=== PATIENT | male | born 1955 | race Caucasian/White ===

== ENCOUNTER 2018-06-15 14:19 | Inpatient (IN) | payer OTHER ==
[2018-06-15] MEDS ORDERED: Meropenem 1 GM/100 ML BAG ONE (14:47)
[2018-06-15] MEDS ORDERED: ACETAMINOPHEN 500 MG TAB ONE (14:47)
[2018-06-15] MEDS ORDERED: NA CHLORIDE 0.9% 3,000 ML ONE (14:47)
[2018-06-15] MEDS ORDERED: PROMETHAZINE 25 MG/ML VIAL ONE (14:47)
--- NOTE | 2018-06-15 15:37 | RAD REPORT ---
EXAM DESCRIPTION: RAD - Chest Single View - 06/15/2018 3:21 pm CLINICAL HISTORY: FEVER Chest pain. COMPARISON: No comparisons FINDINGS: Portable technique limits examination quality. Mild bilateral pulmonary opacities are present likely representing interstitial pneumonia. The heart is normal in size. No displaced fractures. IMPRESSION: Mild bilateral interstitial pneumonia.
[2018-06-15] MEDS ORDERED: IBUPROFEN 400 MG TAB ONE (16:04)
[2018-06-15] MEDS ORDERED: IBUPROFEN 200 MG TAB PO ONE (16:04)
[2018-06-15 16:08] LABS: Arterial Blood Carboxyhemoglob 1.4 % (0-1.5); Blood Gas Oxyhemoglobin 91.9 % (94-97); Blood O2 Saturation 94.3 % (92-98.5)
[2018-06-15 16:09] LABS: Protime INR 1.15
[2018-06-15 16:13] LABS: Absolute Lymphocytes (CBC) 0.5 K/uL (0.7-4.9); Absolute Neutrophil 2.2 K/uL (1.8-8.0); Basophils % 0.3 % (0-1.3); Eosinophils % 0.1 % (0-4.4); Hematocrit 44.2 % (39.6-49.0); Lymphocytes % 18.6 % (15.3-44.8); MCH 29.9 pg (27.0-35.0); MCV 86.5 fL (80-100); MPV 9.7 fL (7.6-11.3); Monocytes % 1.1 % (3.3-12.3); RBC Red Blood Cell Count 5.11 M/uL (4.33-5.43)
--- NOTE | 2018-06-15 16:20 | EDPHYS ---
Physician Documentation [facility] Name: Gil Champagne Age: 63 yrs Sex: Male : 1955 Arrival Date: 06/15/2018 Time: 14:19 Bed 20 Private MD: Camilo Belcher S ED Physician Collin Meehan HPI: 06/15 16:14 This 63 yrs old Male presents to ER via Wheelchair with complaints of Fever, snw Vomiting. 16:14 The patient reports fever, that was measured at 104.4 degrees Fahrenheit. Onset: The snw symptoms/episode began/occurred suddenly. Modifying factors: urinary frequency, chills. Associated signs and symptoms: Pertinent positives: chills, myalgias, vomiting. Severity of symptoms: At their worst the symptoms were moderate severe in the emergency department the symptoms are unchanged. The patient has not experienced similar symptoms in the past. The patient has been recently seen by a physician: with similar presenting complaints, [facility] - dx UTI, sent to ED. Historical: - Allergies: 14:27 PENICILLINS; aa5 - Home Meds: 14:27 Metformin Oral [Active]; aa5 - PMHx: 14:27 Diabetes - NIDDM; aa5 - PSHx: 14:27 left arm; left knee; right ankle; aa5 - Immunization history:: Pneumococcal vaccine status is unknown, Flu vaccine is not up to date. - Social history:: Smoking status: Patient/guardian denies using tobacco. - Ebola Screening: : No symptoms or risks identified at this time. ROS: 16:14 Constitutional: Positive for fever, chills, and negative for weight loss, Eyes: snw Negative for injury, pain, redness, and discharge, ENT: Negative for injury, pain, and discharge, Neck: Negative for injury, pain, and swelling. 16:14 Cardiovascular: Negative for chest pain, palpitations, and edema, Respiratory: Negative for shortness of breath, cough, wheezing, and pleuritic chest pain, Abdomen/GI: Negative for abdominal pain, nausea, vomiting, diarrhea, and constipation, Back: Negative for injury and pain. 16:14 MS/Extremity: Negative for injury and deformity, Skin: Negative for injury, rash, and discoloration, Neuro: Negative for headache, weakness, numbness, tingling, and seizure. 16:14 : Positive for urinary symptoms, urinary frequency. Exam: 16:14 Head/Face: Normocephalic, atraumatic. Eyes: Pupils equal round and reactive to light, snw extra-ocular motions intact. Lids and lashes normal. Conjunctiva and sclera are non-icteric and not injected. Cornea within normal limits. Periorbital areas with no swelling, redness, or edema. 16:14 Neck: Trachea midline, no thyromegaly or masses palpated, and no cervical lymphadenopathy. Supple, full range of motion without nuchal rigidity, or vertebral point tenderness. No Meningismus. Chest/axilla: Normal chest wall appearance and motion. Nontender with no deformity. No lesions are appreciated. 16:14 Respiratory: Lungs have equal breath sounds bilaterally, clear to auscultation and percussion. No rales, rhonchi or wheezes noted. No increased work of breathing, no retractions or nasal flaring. Abdomen/GI: Soft, non-tender, with normal bowel sounds. No distension or tympany. No guarding or rebound. No evidence of tenderness throughout. Back: No spinal tenderness. No costovertebral tenderness. Full range of motion. MS/ Extremity: Pulses equal, no cyanosis. Neurovascular intact. Full, normal range of motion. 16:14 Constitutional: The patient appears awake, febrile, uncomfortable, chills/rigors 16:14 ENT: TM's: no acute changes, Nose: is normal, Mouth: Lips: cyanotic, Oral mucosa: dry, Posterior pharynx: is normal. 16:14 Cardiovascular: Rate: tachycardic, Rhythm: regular. 16:14 Skin: Appearance: Color: brenna, Temperature: cool. 16:14 Neuro: Orientation: mild confusion, inattention, Mentation: slow to respond, confused, seizure activity, is not displayed by the patient. Vital Signs: 14:28 BP 94 / 59; Pulse 100; Resp 22 S; Temp 103.3(O); Pulse Ox 99% on R/A; Weight 94.35 kg aa5 (R); Height 5 ft. 7 in. (170.18 cm) (R); Pain 0/10; 14:45 BP 109 / 64; Pulse 108; Resp 24; Pulse Ox 94% on R/A; jl7 15:00 BP 112 / 67; Pulse 111; Resp 32 S; Pulse Ox 94% on R/A; jl7 15:15 BP 95 / 63; Pulse 115; Resp 30; Pulse Ox 93% ; jl7 15:30 BP 113 / 60; Pulse 124; Resp 24 S; Pulse Ox 94% on R/A; jl7 15:45 BP 101 / 55; Pulse 123; Resp 29 S; Temp 104.6(C); Pulse Ox 94% on R/A; jl7 16:00 BP 98 / 52; Pulse 129; Resp 27; Temp 104.9(C); Pulse Ox 94% ; jl7 16:23 BP 103 / 53; Pulse 119; Resp 27 S; Temp 103.8(C); Pulse Ox 98% on R/A; jl7 17:00 BP 107 / 59; Pulse 116; Resp 32 S; Temp 103.6(C); Pulse Ox 97% on R/A; jl7 17:15 BP 101 / 56; Pulse 119; Resp 35 S; Temp 103.6(C); Pulse Ox 95% on R/A; jl7 17:45 BP 93 / 54; Pulse 115; Resp 29 S; Temp 102.8(C); Pulse Ox 98% on 2 lpm NC; jl7 14:28 Body Mass Index 32.58 (94.35 kg, 170.18 cm) aa5 MDM: 14:42 Patient medically screened. snw 16:20 Data reviewed: vital signs, nurses notes, lab test result(s), EKG, radiologic studies. snw Data interpreted: certified nurses' aide: rate is 100 beats/min, rhythm is normal sinus rhythm, Pulse oximetry: on room air is 99 %. Interpretation: normal. Counseling: I had a detailed discussion with the patient and/or guardian regarding: the historical points, exam findings, and any diagnostic results supporting the discharge/admit diagnosis, lab results, radiology results, the need for further work-up and treatment in the hospital. Physician consultation: Magali Jung MD was called at 16:10, was contacted at 16:10, in the emergency department to see patient at 16:25. 06/15 14:33 Order name: T\T\S sn 06/15 14:33 Order name: Amylase, Serum; Complete Time: 16:55 snw 06/15 14:33 Order name: Basic Metabolic Panel; Complete Time: 16:55 snw 06/15 14:33 Order name: Blood Culture Adult (2) 06/15 14:33 Order name: C-Reactive Protein; Complete Time: 16:55 snw 06/15 14:33 Order name: CBC with Diff; Complete Time: 16:50 snw 06/15 14:33 Order name: Ckmb; Complete Time: 16:55 snw 06/15 14:33 Order name: CPK; Complete Time: 16:55 snw 06/15 14:33 Order name: Lactate; Complete Time: 17:06 snw 06/15 14:33 Order name: LFT's; Complete Time: 16:55 snw 06/15 14:33 Order name: Lipase; Complete Time: 16:55 snw 06/15 14:33 Order name: Procalcitonin; Complete Time: 16:58 snw 06/15 14:33 Order name: Protime (+inr); Complete Time: 16:24 snw 06/15 14:33 Order name: Ptt, Activated; Complete Time: 16:24 w 06/15 14:33 Order name: Sed Rate; Complete Time: 16:50 w 06/15 14:33 Order name: Troponin (emerg Dept Use Only); Complete Time: 16:55 w 06/15 14:33 Order name: Chest Single View XRAY; Complete Time: 15:47 w 06/15 14:34 Order name: Type and Screen; Complete Time: 17:30 EDMS 06/15 14:34 Order name: Urine Microscopic Only; Complete Time: 16:57 w 06/15 14:34 Order name: Urine Culture 06/15 15:57 Order name: ABG; Complete Time: 16:24 snw 06/15 16:29 Order name: Urine Dipstick--Ancillary (enter results) em1 06/15 16:38 Order name: CBC Smear Scan; Complete Time: 16:50 EDMS 06/15 16:57 Order name: Urine Dipstick-Ancillary; Complete Time: 16:57 EDMS 06/15 14:33 Order name: Accucheck; Complete Time: 16:21 snw 06/15 14:33 Order name: Cardiac monitoring; Complete Time: 16:22 snw 06/15 14:33 Order name: EKG - Nurse/Tech; Complete Time: 16:22 06/15 14:33 Order name: IV Saline Lock - Large Bore; Complete Time: 16:22 06/15 14:33 Order name: Labs collected and sent; Complete Time: 16:22 06/15 14:33 Order name: O2 Per Protocol; Complete Time: 16:22 06/15 14:33 Order name: O2 Sat Monitoring; Complete Time: 16:22 06/15 14:33 Order name: Urine Dipstick-Ancillary (obtain specimen); Complete Time: 16:01 06/15 14:34 Order name: Banerjee: Criticore; Complete Time: 16:20 06/15 17:43 Order name: Oxygen: 4L via n/c; Complete Time: 10:17 snw Administered Medications: 14:45 Drug: Tylenol 1000 mg Route: PO; jl7 15:45 Follow up: Response: Temperature is increased jl7 15:15 Drug: NS 0.9% (30 ml/kg) 30 ml/kg Route: IV; Rate: bolus; Site: right hand; jl7 17:30 Follow up: IV Status: Completed infusion jl7 15:20 Drug: Phenergan 12.5 mg Route: IVP; Site: right antecubital; jl7 16:00 Follow up: Response: No adverse reaction; Nausea is decreased jl7 15:40 Drug: Meropenem 1 grams Route: IV; Rate: calculated rate; Site: right antecubital; jl7 16:40 Follow up: IV Status: Completed infusion jl7 16:00 Drug: Motrin 600 mg Route: PO; jl7 17:25 Follow up: Response: Temperature is decreased jl7 16:30 Drug: NS 0.9% 1000 ml Route: IV; Rate: 1 bolus; Site: left antecubital; jl7 17:30 Follow up: IV Status: Completed infusion jl7 16:50 Drug: vancoMYCIN 1 grams Route: IVPB; Infused Over: 2 hrs; Site: left antecubital; jl7 17:45 Follow up: IV Status: Infusion continued upon admission jl7 Disposition: 06/16 07:03 Co-signature as Attending Physician, Collin Meehan MD I agree with the assessment and marilynn plan of care. Disposition: 06/15/18 16:20 Hospitalization ordered by Magali Jung for Inpatient Admission. Preliminary diagnosis is Sepsis, unspecified organism. - Bed requested for Intensive Care Unit. - Status is Inpatient Admission. aj - Condition is Serious. - Problem is new. - Symptoms are unchanged. UTI on Admission? Yes Critical care time excluding procedures: 06/15 16:21 Critical care time: Bedside Care: 10 minutes, Consultation: 20 minutes, Family snw Intervention: 5 minutes. Total time: 35 minutes Signatures: Dispatcher [employer] EDTomasa Light Amanda, RN RN Collin Lawson MD MD cha Therrien, Shelly, COLLECTIONS REP-C COLLECTIONS REP-Csnw Chanel Singh, RN RN aa5 Javon Tapia RN RN jl7 Corrections: (The following items were deleted from the chart) 17:02 16:20 Hospitalization Ordered by Magali Jung MD for Inpatient Admission. Preliminary bd diagnosis is Sepsis, unspecified organism. Bed requested for Intensive Care Unit. Status is Inpatient Admission. Condition is Serious. Problem is new. Symptoms are unchanged. UTI on Admission? Yes. snw 18:08 17:02 06/15/2018 16:20 Hospitalization Ordered by Magali Jung MD for Inpatient aj Admission. Preliminary diagnosis is Sepsis, unspecified organism. Bed requested for Intensive Care Unit. Status is Inpatient Admission. Condition is Serious. Problem is new. Symptoms are unchanged. UTI on Admission? Yes. bd
--- NOTE | 2018-06-15 16:20 | ER ---
Nurse's Notes [facility] Name: Gil Champagne Age: 63 yrs Sex: Male : 1955 Arrival Date: 06/15/2018 Time: 14:19 Bed 20 Private MD: Camilo Belcher S Diagnosis: Sepsis, unspecified organism Presentation: 06/15 14:25 Presenting complaint: Patient states: fever and chills today. 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 Pt reports being seen today at Doctor's office and diagnosed with UTI. Transition of care: patient was not received from another setting of care. Onset of symptoms was June 15, 2018. Risk Assessment: Do you want to hurt yourself or someone else? Patient reports no desire to harm self or others. Initial Sepsis Screen: Does the patient meet any 2 criteria? RR > 20 per min. Temp <36.0*C (96.8*F)) or > 38.3*C (100.4*F). HR > 90 bpm. Yes. Care prior to arrival: None. 14:25 Method Of Arrival: Wheelchair aa5 14:25 Acuity: SHERRI 2 aa5 14:30 Initial Sepsis Screen: Does the patient meet any 2 criteria? RR > 20 per min. Temp jl7 <36.0*C (96.8*F)) or > 38.3*C (100.4*F). HR > 90 bpm. Yes Does the patient have a suspected source of infection? Yes: Dysuria/Frequency/Urgency/UTI. Historical: - Allergies: 14:27 PENICILLINS; aa5 - Home Meds: 14:27 Metformin Oral [Active]; aa5 - PMHx: 14:27 Diabetes - NIDDM; aa5 - PSHx: 14:27 left arm; left knee; right ankle; aa5 - Immunization history:: Pneumococcal vaccine status is unknown, Flu vaccine is not up to date. - Social history:: Smoking status: Patient/guardian denies using tobacco. - Ebola Screening: : No symptoms or risks identified at this time. Screenin:00 Abuse screen: Denies threats or abuse. Denies injuries from another. Nutritional jl7 screening: No deficits noted. Tuberculosis screening: No symptoms or risk factors identified. Fall Risk Total Beckett Fall Scale indicates High Risk Score (45 or more points). Fall prevention measures have been instituted. Side Rails Up X 2 Placed Close to Nursing Station Frequent Obs/Assessments Occuring Family Present and informed to notify staff if the need to leave the bedside As available patient and family educated on Fall Prevention Program and Strategies. Assessment: 14:30 General: Appears uncomfortable, Behavior is calm, cooperative, appropriate for age. jl7 Pain: Complains of pain in all over Quality of pain is described as aching. Neuro: Level of Consciousness is awake, alert, obeys commands, Oriented to person, place, time, situation. Cardiovascular: Patient's skin is warm and dry. Respiratory: Airway is patent Respiratory effort is even, unlabored, Respiratory pattern is regular, symmetrical. GI: Abdomen is round non-distended, Bowel sounds present X 4 quads. Reports nausea. : Urine is cloudy, Reports pain lower quadrant(s). EENT: No signs and/or symptoms were reported regarding the EENT system. Derm: Skin is pink, warm \T\ dry. Musculoskeletal: No signs and/or symptoms reported regarding the musculoskeletal system. 15:30 Reassessment: No changes from previously documented assessment. Patient and/or family jl7 updated on plan of care and expected duration. Pain level reassessed. Patient is alert, oriented x 3, equal unlabored respirations, skin warm/dry/pink. 16:30 Reassessment: Patient and/or family updated on plan of care and expected duration. Pain jl7 level reassessed. Patient is alert, oriented x 3, equal unlabored respirations, skin warm/dry/pink. Vital Signs: 14:28 BP 94 / 59; Pulse 100; Resp 22 S; Temp 103.3(O); Pulse Ox 99% on R/A; Weight 94.35 kg aa5 (R); Height 5 ft. 7 in. (170.18 cm) (R); Pain 0/10; 14:45 BP 109 / 64; Pulse 108; Resp 24; Pulse Ox 94% on R/A; jl7 15:00 BP 112 / 67; Pulse 111; Resp 32 S; Pulse Ox 94% on R/A; jl7 15:15 BP 95 / 63; Pulse 115; Resp 30; Pulse Ox 93% ; jl7 15:30 BP 113 / 60; Pulse 124; Resp 24 S; Pulse Ox 94% on R/A; jl7 15:45 BP 101 / 55; Pulse 123; Resp 29 S; Temp 104.6(C); Pulse Ox 94% on R/A; jl7 16:00 BP 98 / 52; Pulse 129; Resp 27; Temp 104.9(C); Pulse Ox 94% ; jl7 16:23 BP 103 / 53; Pulse 119; Resp 27 S; Temp 103.8(C); Pulse Ox 98% on R/A; jl7 17:00 BP 107 / 59; Pulse 116; Resp 32 S; Temp 103.6(C); Pulse Ox 97% on R/A; jl7 17:15 BP 101 / 56; Pulse 119; Resp 35 S; Temp 103.6(C); Pulse Ox 95% on R/A; jl7 17:45 BP 93 / 54; Pulse 115; Resp 29 S; Temp 102.8(C); Pulse Ox 98% on 2 lpm NC; jl7 14:28 Body Mass Index 32.58 (94.35 kg, 170.18 cm) aa5 ED Course: 14:19 Patient arrived in ED. rg4 14:20 Camilo Belcher MD is Private Physician. rg4 14:25 Arm band placed on. aa5 14:26 Triage completed. aa5 14:29 Javon Tapia, MARQUEZ is Primary Nurse. jl7 14:41 Dariana Chilel FNP-C [facility]. snw 14:42 Collin Meehan MD is Attending Physician. snw 15:00 Patient has correct armband on for positive identification. Placed in gown. Bed in low jl7 position. Call light in reach. Side rails up X2. security monitor on. Pulse ox on. NIBP on. 15:14 Inserted saline lock: 20 gauge in right antecubital area, using aseptic technique. jl7 Blood collected. 15:14 Initial lab(s) drawn, by va, sent to lab. First set of blood cultures drawn by me. jl7 15:21 X-ray completed. Portable x-ray completed in exam room. Patient tolerated procedure sw well. 15:21 Chest Single View XRAY In Process Unspecified. EDMS 15:35 Second set of blood cultures drawn by me, Urine collected: clean catch specimen, cloudy.jl7 15:45 Banerjee cath inserted, using sterile technique, 16 Fr., by va, balloon inflated, to jl7 gravity drainage, returned cloudy urine. Patient tolerated well. 16:15 Inserted saline lock: 18 gauge 22 gauge in right in left antecubital area, using jl7 aseptic technique. hand, using aseptic technique. 16:19 Magali Jung MD is Hospitalizing Provider. snw 17:27 T\T\S Sent. jl7 17:48 No provider procedures requiring assistance completed. Patient admitted, IV remains in jl7 place. intact, No redness/swelling at site. Administered Medications: 14:45 Drug: Tylenol 1000 mg Route: PO; jl7 15:45 Follow up: Response: Temperature is increased jl7 15:15 Drug: NS 0.9% (30 ml/kg) 30 ml/kg Route: IV; Rate: bolus; Site: right hand; jl7 17:30 Follow up: IV Status: Completed infusion jl7 15:20 Drug: Phenergan 12.5 mg Route: IVP; Site: right antecubital; jl7 16:00 Follow up: Response: No adverse reaction; Nausea is decreased jl7 15:40 Drug: Meropenem 1 grams Route: IV; Rate: calculated rate; Site: right antecubital; jl7 16:40 Follow up: IV Status: Completed infusion jl7 16:00 Drug: Motrin 600 mg Route: PO; jl7 17:25 Follow up: Response: Temperature is decreased jl7 16:30 Drug: NS 0.9% 1000 ml Route: IV; Rate: 1 bolus; Site: left antecubital; jl7 17:30 Follow up: IV Status: Completed infusion jl7 16:50 Drug: vancoMYCIN 1 grams Route: IVPB; Infused Over: 2 hrs; Site: left antecubital; jl7 17:45 Follow up: IV Status: Infusion continued upon admission jl7 Outcome: 16:20 Decision to Hospitalize by Provider. snw 17:48 Admitted to ICU accompanied by nurse, accompanied by tech, family with patient, via jl7 stretcher, room 6, on monitor, with chart, Report called to MARQUEZ carbone 17:52 Condition: stable jl 17:52 Discharge instructions given to patient, family, Instructed on the need for admit, jl7 Demonstrated understanding of instructions. 18:08 Patient left the ED. aj Signatures: Dispatcher [employer] EDChelsea Pool RN Dariana Lopez, JUNIOR PROGRAMMER-C JUNIOR PROGRAMMER-Csnw Chanel Singh RN RN sabas5 Nishi Villarreal Rubi 4 Javon Tapia RN RN jl7 Corrections: (The following items were deleted from the chart) 14:28 14:25 Acuity: SHERRI 3 aa5 aa5 14:35 14:25 Initial Sepsis Screen: Does the patient meet any 2 criteria? No. Patient's aa5 initial sepsis screen is negative. Does the patient have a suspected source of infection? No. Patient's initial sepsis screen is negative. aa5 17:26 17:25 Response: Temperature is unchanged koffi rain
--- NOTE | 2018-06-15 16:31 | P.HP ---
Certification for Inpatient Patient admitted to: Inpatient With expected LOS: >2 Midnights Patient will require the following post-hospital care: None Practitioner: I am a practitioner with admitting privileges, knowledge of patient current condition, hospital course, and medical plan of care. Services: Services provided to patient in accordance with Admission requirements found in Title 42 Section 412.3 of the Code of Federal Regulations Patient History Date of Service: 06/15/18 Primary Care Provider: Dr Belcher Reason for admission: Fever and Chills History of Present Illness: This is a 63-year-old male with significant past medical history of diabetes who presented to the ED complaining of having some fever chills and rigors that has been going on for past couple of days. Patient stated that about a week ago he started feeling weak and fatigued and had started having some nausea at that time. His nausea has got Rodger 2 point where he started having some vomiting is well. Patient presented to the ER for further workup. Patient stated that his fever has been as high as 104.4 lb. T is not taken any medications for it I. Patient has increased frequency and burning during urination as well. Patient went to a urgent care where he was told that he has urinary tract infection and this needed to come to the ER here. In the ER patient was found to be hypertensive and tachycardic along with signs of sepsis secondary to UTI and thus was referred over for admission for further workup. Home medications list reviewed: Yes - Past Medical/Surgical History Has patient received pneumonia vaccine in the past: No Diabetic: Yes -: Diabetes Past Surgical History: Reviewed- Non-Contributory - Family History Family History: Reviewed- Non-Contributory - Social History Smoking Status: Never smoker Counseled patient to stop smoking for: less than 10 minutes Smoking therapy provided: No Patient receptive to therapy: No Alcohol use: No CD- Drugs: No Caffeine use: No Place of Residence: Home Review of Systems 10-point ROS is otherwise unremarkable Physical Examination - Physical Exam General: Alert, In no apparent distress HEENT: Atraumatic, PERRLA, Mucous membr. moist/pink, EOMI, Sclerae nonicteric Neck: Supple, 2+ carotid pulse no bruit, No LAD, Without JVD or thyroid abnormality Respiratory: Clear to auscultation bilaterally, Normal air movement Cardiovascular: Regular rate/rhythm, Normal S1 S2 Gastrointestinal: Normal bowel sounds, No tenderness Musculoskeletal: No tenderness Integumentary: No rashes Neurological: Normal gait, Normal speech, Normal strength at 5/5 x4 extr, Normal tone, Normal affect Lymphatics: No axilla or inguinal lymphadenopathy - Studies Laboratory Data (last 24 hrs) 06/15/18 15:14: PT 13.6 H, INR 1.15, APTT 21.5 L Assessment and Plan - Problems (Diagnosis) (1) Sepsis Current Visit: Yes Status: Acute Plan: Severe Sepsis with Tachycardia, Hypotension and elevated LA -Most Likely 2.2 to UTI PNA -On Vanc and meropenum -Blood and urine culture pending -Will f.u with Labs (2) UTI (urinary tract infection) Current Visit: Yes Status: Acute Plan: UA concerning for UTI -Urine Culture pending for now -IV Meropenum and Vanc Qualifiers: Urinary tract infection type: acute cystitis (3) PNA (pneumonia) Current Visit: Yes Status: Acute Plan: Xray with BL PNA. -On IV vanc and Meropenum -Sputum culture pending -Xray in AM - Plan Patient will be admitted to the ICU for severe sepsis secondary to UTI versus pneumonia. Patient is currently on IV fluids and IV antibiotics. Will continue to monitor closely. Will follow up blood culture and urine culture. Will follow up with lab work which is pending at this time. Discharge Plan: Home Plan to discharge in: 48 Hours - Advance Directives Does patient have a Living Will: No Does patient have a Durable POA for Healthcare: No - Code Status/Comfort Care Code Status Assessed: Yes Critical Care: No
[2018-06-15 16:37] LABS: Blood Morphology Comment NOT SEEN (NOT SEEN); Platelet Estimate ADEQ; Urine White Blood Cell Casts OK
[2018-06-15] MEDS ORDERED: VANCOMYCIN 1 GM/250 ML BAG ONE (16:39)
[2018-06-15] MEDS ORDERED: NA CHLORIDE 0.9% 1,000 ML ONE (16:40)
[2018-06-15 16:53] LABS: ALT/SGPT 31 U/L (12-78); AST/SGOT 24 U/L (15-37); Albumin 3.4 g/dL (3.4-5.0); Alkaline Phosphatase 86 U/L (45-117); Amylase Level 22 U/L (25-115); BUN Blood Urea Nitrogen 11 mg/dL (7-18); Bicarbonate 28 mmol/L (21-32); Bilirubin Direct 0.2 mg/dL (0-0.2); Bilirubin Total 0.8 mg/dL (0.2-1.0); CKMB Creatine Kinase MB < 1.0 ng/mL (0.3-3.6); Creatine Phosphokinase 67 U/L (39-308); Glucose Level 164 mg/dL (74-106); Lipase 100 U/L (73-393); Potassium 3.6 mmol/L (3.5-5.1); Protein, Total 7.9 g/dL (6.4-8.2); Sodium Level 134 mmol/L (136-145); Troponin (Emerg Dept Use Only) < 0.02 ng/mL (0.0-0.045)
[2018-06-15 16:55] LABS: Urine Bacteria 20-50 /HPF (NONE SEEN)
[2018-06-15 16:56] LABS: Urine Culture Reflex Order NOT NEEDED; Urine Mucus 2+ /HPF (NONE SEEN)
[2018-06-15 16:56] LABS: Urine Blood 2+ (NEG); Urine Glucose NEGATIVE (NEG); Urine Protein 3+ (NEG); Urine pH 5.5 (5.0-7.0)
[2018-06-15] MEDS ORDERED: VANCOMYCIN 1.25 GM in NA CHLORIDE 0.9% 250 ML IVPB SCH (17:52)
[2018-06-15] MEDS ORDERED: ONDANSETRON 4 MG/2 ML VIAL IV PRN (17:52)
[2018-06-15] MEDS: INSULIN -REGULAR HUMAN 50 UNIT/0.5 ML ML SQ SCH ×2 (17:52→21:00)
[2018-06-15] MEDS: NA CHLORIDE 0.9% 1,000 ML IV SCH (18:26)
[2018-06-15] MEDS: ENOXAPARIN 40 MG/0.4 ML SQ SCH (20:36)
[2018-06-15] MEDS ORDERED: NA CHLORIDE 0.9% 1,000 ML IV ONE (20:47)
[2018-06-15] MEDS ORDERED: VANCOMYCIN 1.25 GM in NA CHLORIDE 0.9% 250 ML IVPB ONE (21:00)
[2018-06-15] MEDS ORDERED: VANCOMYCIN 2.25 GM in NA CHLORIDE 0.9% 500 ML IVPB ONE (21:00)
[2018-06-15] MEDS ORDERED: Meropenem 1000 MG/VIAL IV SCH (21:00)
[2018-06-15] MEDS ORDERED: NOREPINEPHRINE 4 MG in D5W 250 ML IV PRN (22:19)
[2018-06-15] MEDS ORDERED: D5W 250 ML IV ONE (22:40)
[2018-06-15] MEDS ORDERED: NOREPINEPHRINE 4 MG/4 ML VIAL ONE (22:40)
[2018-06-16] MEDS: Meropenem 1,000 MG in NA CHLORIDE 0.9% 100 ML IV SCH ×3 (00:38→17:49)
[2018-06-16] MEDS: NA CHLORIDE 0.9% 1,000 ML IV SCH ×4 (01:33→14:54)
[2018-06-16 05:23] LABS: Absolute Lymphocytes (CBC) 0.1 K/uL (0.7-4.9); Absolute Monocytes 0.3 K/uL (0.1-1.3); Absolute Neutrophil 8.9 K/uL (1.8-8.0); Basophils % 0.2 % (0-1.3); Eosinophils % 0.8 % (0-4.4); Hematocrit 37.2 % (39.6-49.0); Lymphocytes % 0.8 % (15.3-44.8); MCH 30.4 pg (27.0-35.0); MCV 85.6 fL (80-100); MPV 9.4 fL (7.6-11.3); Monocytes % 3.4 % (3.3-12.3); RBC Red Blood Cell Count 4.34 M/uL (4.33-5.43)
[2018-06-16 05:47] LABS: Albumin 2.4 g/dL (3.4-5.0); Bilirubin Total 0.8 mg/dL (0.2-1.0); Potassium 3.9 mmol/L (3.5-5.1); Protein, Total 5.8 g/dL (6.4-8.2)
[2018-06-16] MEDS ORDERED: NA CHLORIDE 0.9% 1,000 ML IV ONE (06:13)
[2018-06-16] MEDS: ACETAMINOPHEN 500 MG TAB PO PRN ×3 (06:25→19:58)
[2018-06-16] MEDS: INSULIN -REGULAR HUMAN 50 UNIT/0.5 ML ML SQ SCH ×4 (07:34→21:00)
[2018-06-16 08:02] LABS: Magnesium 1.6 mg/dL (1.8-2.4); Phosphorus 2.1 mg/dL (2.5-4.9)
[2018-06-16] MEDS: ENOXAPARIN 40 MG/0.4 ML SQ SCH (08:13)
--- NOTE | 2018-06-16 08:29 | RAD REPORT ---
EXAM DESCRIPTION: RAD - Chest Single View - 06/15/2018 11:16 pm CLINICAL HISTORY: picc line insertion COMPARISON: Chest Single View dated 06/15/2018 FINDINGS: Portable chest was obtained following placement of a right upper extremity PICC line. The catheter tip projects over the SVC..
[2018-06-16 09:00] LABS: Blood Morphology Comment NOT SEEN (NOT SEEN); Platelet Estimate ADEQ; Urine White Blood Cell Casts OK
[2018-06-16] MEDS ORDERED: MAGNESIUM SULFATE 1 gm IVPB 1 GM/100 ML BAG IV ONE (09:00)
[2018-06-16] MEDS: POTASS/SODIUM PHOSPHATE 1 PKT POWD.PACK PO SCH ×3 (09:14→11:36)
--- NOTE | 2018-06-16 12:09 | P.PN ---
Subjective Date of Service: 06/16/18 Primary Care Provider: Dr Belcher Chief Complaint: Fever and Chills Patient seen and examined at bedside. Chart reviewed. Case discussed with nursing. Overnight patient did require to be on a pressor Levophed. This morning however has been successfully weaned off. No complaints to offer at this morning. Currently the map is over 60 however patient blood pressure does appear to be a lower than normal ranges. Review of Systems 10-point ROS is otherwise unremarkable Physical Examination - Vital Signs Temperature: 101.8 F Blood Pressure: 102/60 Pulse: 98 Respirations: 26 Pulse Ox (%): 98 - Physical Exam General: Alert, In no apparent distress HEENT: Atraumatic, PERRLA, EOMI Neck: Supple, JVD not distended Respiratory: Clear to auscultation bilaterally, Normal air movement Cardiovascular: Regular rate/rhythm, Normal S1 S2 Gastrointestinal: Normal bowel sounds, No tenderness Musculoskeletal: No tenderness Integumentary: No rashes Neurological: Normal speech, Normal tone, Normal affect Lymphatics: No axilla or inguinal lymphadenopathy - Studies Laboratory Data (last 24 hrs) 06/15/18 15:14: PT 13.6 H, INR 1.15, APTT 21.5 L 06/15/18 15:14: WBC 2.7 L, Hgb 15.3, Hct 44.2, Plt Count 170 06/15/18 15:14: Sodium 134 L, Potassium 3.6, BUN 11, Creatinine 1.10, Glucose 164 H, Total Bilirubin 0.8, AST 24, ALT 31, Alkaline Phosphatase 86, Amylase 22 L, Lipase 100 Medications List Reviewed: Yes Assessment And Plan - Current Problems (Diagnosis) (1) Sepsis Onset Date: 06/16/18 Current Visit: Yes Status: Acute Plan: Severe Sepsis Shock with Tachycardia, Hypotension and elevated LA -Most Likely 2.2 to UTI -On Vanc and meropenum -Overnight had Levophed and now off the pressor -Blood and urine culture pending. Uculture gram - rods thus far -Will f.u with Labs (2) UTI (urinary tract infection) Onset Date: 06/16/18 Current Visit: Yes Status: Acute Plan: UA concerning for UTI -Urine Culture gram - rods thus far -IV Meropenum and Vanc Qualifiers: Urinary tract infection type: acute cystitis (3) PNA (pneumonia) Onset Date: 06/16/18 Current Visit: Yes Status: Acute Plan: Xray with BL PNA. -On IV vanc and Meropenum -Sputum culture pending -Repeat Xray in AM with improvement (4) Diabetes Current Visit: Yes Status: Chronic Qualifiers: Diabetes mellitus type: type 2 Diabetes mellitus terminal supervisor insulin use: without terminal supervisor use Discharge Plan: Home Plan to discharge in: 48 Hours - Code Status/Comfort Care Code Status Assessed: Yes Critical Care: No
[2018-06-16] MEDS: VANCOMYCIN 1.75 GM in NA CHLORIDE 0.9% 500 ML IVPB SCH (14:53)
[2018-06-16] MEDS ORDERED: NA CHLORIDE 0.9% 500 ML IV ONE (18:30)
[2018-06-16] MEDS ORDERED: PNEUMOCOCCAL VACCINE 0.5 ML IMVAC ONE (21:00)
[2018-06-17] MEDS: NA CHLORIDE 0.9% 1,000 ML IV SCH ×3 (01:54→17:34)
[2018-06-17] MEDS: Meropenem 1,000 MG in NA CHLORIDE 0.9% 100 ML IV SCH ×2 (01:55→08:17)
[2018-06-17] MEDS: ACETAMINOPHEN 500 MG TAB PO PRN ×2 (03:07→23:59)
[2018-06-17 05:31] LABS: Absolute Lymphocytes (CBC) 0.5 K/uL (0.7-4.9); Absolute Monocytes 0.3 K/uL (0.1-1.3); Absolute Neutrophil 3.4 K/uL (1.8-8.0); Basophils % 0.2 % (0-1.3); Eosinophils % 6.2 % (0-4.4); Lymphocytes % 10.5 % (15.3-44.8); MCH 29.8 pg (27.0-35.0); MCV 86.3 fL (80-100); MPV 9.4 fL (7.6-11.3); Monocytes % 6.8 % (3.3-12.3); RBC Red Blood Cell Count 4.06 M/uL (4.33-5.43)
[2018-06-17 06:05] LABS: ALT/SGPT 34 U/L (12-78); AST/SGOT 35 U/L (15-37); Albumin 2.2 g/dL (3.4-5.0); Alkaline Phosphatase 72 U/L (45-117); BUN Blood Urea Nitrogen 11 mg/dL (7-18); Bicarbonate 25 mmol/L (21-32); Bilirubin Total 0.5 mg/dL (0.2-1.0); Glucose Level 130 mg/dL (74-106); Magnesium 1.9 mg/dL (1.8-2.4); Phosphorus 1.9 mg/dL (2.5-4.9); Potassium 3.3 mmol/L (3.5-5.1); Protein, Total 5.3 g/dL (6.4-8.2); Sodium Level 140 mmol/L (136-145)
[2018-06-17] MEDS: POTASSIUM PHOS IN 0.9 % NACL 15 MMOL/250 ML BAG IV ONE ×2 (06:40→08:51)
[2018-06-17] MEDS ORDERED: KCL 20 MEQ/100 mL IVPB 20 MEQ/100 ML BAG IV ONE (06:48)
[2018-06-17] MEDS ORDERED: KCL 20 MEQ/100 mL IVPB 20 MEQ/100 ML BAG IV SCH (07:00)
[2018-06-17] MEDS: INSULIN -REGULAR HUMAN 50 UNIT/0.5 ML ML SQ SCH ×4 (07:30→21:00)
[2018-06-17] MEDS: ENOXAPARIN 40 MG/0.4 ML SQ SCH (08:17)
[2018-06-17] MEDS: VANCOMYCIN 1.75 GM in NA CHLORIDE 0.9% 500 ML IVPB SCH (09:18)
[2018-06-17] MEDS ORDERED: Levofloxacin500mg IV 500 MG/100 ML BAG IV SCH (14:00)
--- NOTE | 2018-06-17 16:57 | P.PN ---
Subjective Date of Service: 06/17/18 Primary Care Provider: Dr Belcher Chief Complaint: Fever and Chills Patient seen and examined at bedside. Chart reviewed. Case discussed with nursing. Overnight patient did well overall. Currently doing well. Urine culture positive for E. coli. Sensitive to Levaquin. Review of Systems 10-point ROS is otherwise unremarkable Physical Examination - Vital Signs Temperature: 99.4 F Blood Pressure: 122/80 Pulse: 77 Respirations: 17 Pulse Ox (%): 99 - Physical Exam General: Alert, In no apparent distress HEENT: Atraumatic, PERRLA, EOMI Neck: Supple, JVD not distended Respiratory: Clear to auscultation bilaterally, Normal air movement Cardiovascular: Regular rate/rhythm, Normal S1 S2 Gastrointestinal: Normal bowel sounds, No tenderness Musculoskeletal: No tenderness Integumentary: No rashes Neurological: Normal speech, Normal tone, Normal affect Lymphatics: No axilla or inguinal lymphadenopathy - Studies Microbiology Data (last 24 hrs): 06/15/18 16:00 Catheterized Urine [place] Count - Final >100,000 CFU/ML. 06/15/18 16:00 Catheterized Urine - Final Escherichia Coli Medications List Reviewed: Yes Assessment And Plan - Current Problems (Diagnosis) (1) Sepsis Onset Date: 06/16/18 Current Visit: Yes Status: Acute Plan: Severe Sepsis Shock with Tachycardia, Hypotension and elevated LA -Most Likely 2.2 to UTI -the urine culture positive for E. coli. Switched to Levaquin at this time. -hemodynamically stable at this point -transferred to the regular floor (2) UTI (urinary tract infection) Onset Date: 06/16/18 Current Visit: Yes Status: Acute Plan: UA concerning for UTI -urine culture positive for E. coli sensitive to Levaquin Qualifiers: Urinary tract infection type: acute cystitis (3) PNA (pneumonia) Onset Date: 06/16/18 Current Visit: Yes Status: Acute Plan: Xray with BL PNA. -currently on Levaquin (4) Diabetes Current Visit: Yes Status: Chronic Qualifiers: Diabetes mellitus type: type 2 Diabetes mellitus assisted insulin use: without long term care pharmacist use - Plan Severe sepsis resolving now. Patient has UTI positive for E. coli sensitive to Levaquin. Patient's antibiotic switch to Levaquin today. Will transfer patient to the regular floor. Patient will have PT consulted on the regular floor for therapy. Anticipate discharge in 24-48 hr.
[2018-06-17] MEDS ORDERED: POTASSIUM 25 MEQ EFFERV TAB PO ONE (21:18)
[2018-06-18] MEDS: NA CHLORIDE 0.9% 1,000 ML IV SCH
[2018-06-18 05:45] LABS: Absolute Lymphocytes (CBC) 1.2 K/uL (0.7-4.9); Absolute Monocytes 0.3 K/uL (0.1-1.3); Absolute Neutrophil 3.4 K/uL (1.8-8.0); Basophils % 0.2 % (0-1.3); Eosinophils % 4.1 % (0-4.4); Lymphocytes % 23.6 % (15.3-44.8); MPV 9.2 fL (7.6-11.3); Monocytes % 6.4 % (3.3-12.3); RBC Red Blood Cell Count 4.16 M/uL (4.33-5.43)
[2018-06-18 06:01] LABS: ALT/SGPT 31 U/L (12-78); AST/SGOT 27 U/L (15-37); Albumin 2.2 g/dL (3.4-5.0); Alkaline Phosphatase 82 U/L (45-117); BUN Blood Urea Nitrogen 9 mg/dL (7-18); Bicarbonate 27 mmol/L (21-32); Bilirubin Total 0.4 mg/dL (0.2-1.0); Glucose Level 142 mg/dL (74-106); Magnesium 2.1 mg/dL (1.8-2.4); Phosphorus 2.2 mg/dL (2.5-4.9); Potassium 3.6 mmol/L (3.5-5.1); Protein, Total 5.6 g/dL (6.4-8.2); Sodium Level 141 mmol/L (136-145)
[2018-06-18] MEDS ORDERED: POTASSIUM PHOS IN 0.9 % NACL 15 MMOL/250 ML BAG IV ONE (06:07)
[2018-06-18] MEDS: INSULIN -REGULAR HUMAN 50 UNIT/0.5 ML ML SQ SCH ×2 (07:30→11:30)
[2018-06-18] MEDS: ENOXAPARIN 40 MG/0.4 ML SQ SCH (08:11)
[2018-06-18] MEDS ORDERED: PNEUMOCOCCAL VACCINE 0.5 ML IMVAC ONE (09:00)
--- NOTE | 2018-06-18 13:29 | P.DS ---
Admission Date: 06/15/18 Discharge Date: 06/18/18 Primary Care Provider: Dr Belcher Disposition: ROUTINE DISCHARGE Discharge Condition: FAIR Reason for Admission: Fever and Chills - Problems (1) PNA (pneumonia) Onset Date: 06/16/18 Current Visit: Yes Status: Acute (2) Sepsis Onset Date: 06/16/18 Current Visit: Yes Status: Acute (3) UTI (urinary tract infection) Onset Date: 06/16/18 Current Visit: Yes Status: Acute Qualifiers: Urinary tract infection type: acute cystitis Brief History of Present Illness: This is a 63-year-old male with significant past medical history of diabetes who presented to the ED complaining of having some fever chills and rigors that has been going on for past couple of days. Patient stated that about a week ago he started feeling weak and fatigued and had started having some nausea at that time. His nausea has got Rodger 2 point where he started having some vomiting is well. Patient presented to the ER for further workup. Patient stated that his fever has been as high as 104.4 lb. T is not taken any medications for it I. Patient has increased frequency and burning during urination as well. Patient went to a urgent care where he was told that he has urinary tract infection and this needed to come to the ER here. Hospital Course: He was admitted for sepsis. Urine cx shows E Coli; Blood cx is negative. He is much better with IV abx. He is ready to be discharged home, on oral levaquin x 14 days. Vital Signs/Physical Exam: Temp Pulse Resp BP Pulse Ox 97.9 F 68 18 138/81 97 06/18/18 12:00 06/18/18 12:00 06/18/18 12:00 06/18/18 12:00 06/18/18 12:00 General: Alert, In no apparent distress HEENT: Atraumatic, PERRLA, EOMI Neck: Supple, JVD not distended Respiratory: Clear to auscultation bilaterally, Normal air movement Cardiovascular: Regular rate/rhythm, Normal S1 S2 Gastrointestinal: Normal bowel sounds, No tenderness Musculoskeletal: No tenderness Integumentary: No rashes Neurological: Normal speech, Normal tone, Normal affect Lymphatics: No axilla or inguinal lymphadenopathy Laboratory Data at Discharge: WBC 5.1 K/uL (4.3-10.9) 06/18/18 04:56 Hgb 12.5 g/dL (13.6-17.9) L 06/18/18 04:56 Hct 35.0 % (39.6-49.0) L 06/18/18 04:56 Plt Count 112 K/uL (152-406) L 06/18/18 04:56 PT 13.6 SECONDS (9.5-12.5) H 06/15/18 15:14 INR 1.15 06/15/18 15:14 APTT 21.5 SECONDS (24.3-36.9) L 06/15/18 15:14 Sodium 141 mmol/L (136-145) 06/18/18 04:56 Potassium 3.6 mmol/L (3.5-5.1) 06/18/18 04:56 BUN 9 mg/dL (7-18) 06/18/18 04:56 Creatinine 0.60 mg/dL (0.55-1.3) 06/18/18 04:56 Glucose 142 mg/dL (74-106) H 06/18/18 04:56 Phosphorus 2.2 mg/dL (2.5-4.9) L 06/18/18 04:56 Magnesium 2.1 mg/dL (1.8-2.4) 06/18/18 04:56 Total Bilirubin 0.4 mg/dL (0.2-1.0) 06/18/18 04:56 AST 27 U/L (15-37) 06/18/18 04:56 ALT 31 U/L (12-78) 06/18/18 04:56 Alkaline Phosphatase 82 U/L (45-117) 06/18/18 04:56 Amylase 22 U/L (25-115) L 06/15/18 15:14 Lipase 100 U/L (73-393) 06/15/18 15:14 Home Medications: Metformin HCl [Glucophage] 500 mg PO BIDWM 06/16/18 Smz./Tmp. [Bactrim Ds 800 MG/160 MG] 1 tab PO BID 06/16/18 Diet: ADA Activity: Ad theodore Time spent managing pt's care (in minutes): 35
== END 2018-06-18 14:59 | disposition home or self-care (01) | DRG 871 ==
LOC: ER 14:19 → ERHOLD 16:23 → 3RD-ICU 17:25 → 4TH 06-17 21:30
PROVIDERS: ADMIT Family Medicine; ATTEND Internal Medicine Hematology & Oncology
PROC: 02HV33Z Insertion of Infusion Device into Superior Vena Cava, Percutaneous Approach (ICD-10-PCS; principal; 2018-06-15)
PROC: 3E033XZ Introduction of Vasopressor into Peripheral Vein, Percutaneous Approach (ICD-10-PCS; 2018-06-15)
DX: A41.9 Sepsis, unspecified organism (principal); J18.9 Pneumonia, unspecified organism; N30.00 Acute cystitis without hematuria; B96.20 Unspecified Escherichia coli [E. coli] as the cause of diseases classified elsewhere; E11.9 Type 2 diabetes mellitus without complications; Z79.84 Long term (current) use of oral hypoglycemic drugs; A42.7 Actinomycotic sepsis; R65.20 Severe sepsis without septic shock; Z88.0 Allergy status to penicillin
CPT/HCPCS: 36415; 51702; 71045; 80048; 80053; 80076; 81003; 81015; 82150; 82550; 82553; 82805; 82962; 83605; 83690; 83735; 84100; 84132; 84145; 84443; 84484; 85025; 85610; 85652; 85730; 86140; 86850; 86900; 86901; 87040; 87077; 87086; 87088; 87186; 99285; J1650; J2185; J2405; J2550; J3370; J3475; J7030; J7060

== ENCOUNTER 2019-10-08 08:49 | Emergency (ER) | payer OTHER ==
--- OUTSIDE RECORDS SUMMARY | 2019-10-08 08:51 | XMS REPORT ---
:1955 [facility] Address [address] [place] [address] Care Team Providers Name Role Phone Unavailable Unavailable Unavailable Problems This patient has no known problems. Allergies, Adverse Reactions, Alerts This patient has no known allergies or adverse reactions. Medications This patient has no known medications.
--- OUTSIDE RECORDS SUMMARY | 2019-10-08 08:52 | XMS REPORT | Summary of Care ---
:1955 Author Organization [facility] - [facility] Address [address] [place] [id number] Care Team Providers Name Role Phone Camilo Belcher MD Primary Care Provider Reason for Visit Reason Comments Congestion Cough Sore Throat Encounter Details Date Type Department Care Team Description 05/25/2019 Office Visit [facility] Family Camilo Belcher MD Bronchitis (Primary Dx); Medicine - [address] Type 2 diabetes mellitus without complication, without long- term current use of insulin [address] [place] [phone] Allergies Active Allergy Reactions Severity Noted Date Comments Iodine Dizziness 05/21/2016 Penicillins Unknown - See comments 10/29/2015 documented as of this encounter (statuses as of 05/25/2019) Medications Medication Sig Dispensed Refills Start Date End Date Status aspirin 81 mg Take 81 mg by 0 Active chewable tablet mouth daily. CIALIS 20 mg TAKE 20 tablet 0 12/17/2016 Active tablet DIRECTED azithromycin 250 Take 1 tablet 1 Package 0 12/12/2018 Active mg by mouth tabletIndications: SEE-INSTRUCTIO Pharyngitis, NS. Take 500 unspecified mg day 1, then etiology 250 mg days 2 to 5. metFORMIN 500 mg Take 1 tablet 180 tablet 1 05/25/2019 Active tabletIndications: by mouth 2 Type 2 diabetes (two) times mellitus without daily with complication, meals. without long-term current use of insulin azithromycin 250 Take 1 tablet 1 Package 0 05/25/2019 Active mg by mouth tabletIndications: SEE-INSTRUCTIO Bronchitis NS. Take 500 mg day 1, then 250 mg days 2 to 5. metFORMIN 500 mg Take 1 tablet 180 tablet 1 05/25/2018 05/25/2019 Discontinued tablet by mouth 2 (two) times daily with meals. documented as of this encounter (statuses as of 05/25/2019) Active Problems Problem Noted Date Type 2 diabetes mellitus without complication, without long-term current 05/25 use of insulin documented as of this encounter (statuses as of 05/25/2019) Social History Tobacco Use Types Packs/Day Years Used Date Never Smoker Smokeless Tobacco: Never Used Alcohol Use Drinks/Week oz/Week Comments No 0 Standard drinks or equivalent 0.0 Sex Assigned at Date Recorded Not on file Job Start Date Occupation Industry Not on file Not on file Not on file Travel History Travel Start Travel End No recent travel history available. documented as of this encounter Last Filed Vital Signs Vital Sign Reading Time Taken Comments Blood Pressure 120/70 05/25/2019 1:20 PM CDT Pulse - - Temperature 36.7 C (98 F) 05/25/2019 1:20 PM CDT Respiratory Rate - - Oxygen Saturation - - Inhaled Oxygen Concentration - - Weight 97.1 kg (214 lb) 05/25/2019 1:20 PM CDT Height - - Body Mass Index 33.52 12/12/2018 3:19 PM [employer] documented in this encounter Progress Notes Camilo Belcher MD - 05/25/2019 1:15 PM CDT Cc: uri, medication refill Chief Complaint Patient presents with Congestion Cough Sore Throat Gil Champagne is a 64 year old male. Here for uri symptoms, metformin refill Allergies Gil is allergic to iodine and pcn [penicillins]. Medications Outpatient Medications Prior to Visit Medication Sig Dispense Refill metFORMIN 500 mg tablet Take 1 tablet by mouth 2 (two) times daily with meals. 180 tablet 1 azithromycin 250 mg tablet Take 1 tablet by mouth SEE-INSTRUCTIONS. Take 500 mg day 1, then 250 mg days 2 to 5. 1 Package 0 CIALIS 20 mg tablet TAKE DIRECTED 20 tablet 0 aspirin 81 mg chewable tablet Take 81 mg by mouth daily. No facility-administered medications prior to visit. Histories Past Medical History: Diagnosis Date Diabetes mellitus PE (pulmonary thromboembolism) Past Surgical History: Procedure Laterality Date ANKLE ORIF bilateral EYE SURGERY lasix PELVIS ORIF [place] FOOT/TOES SURGERY PROC UNLISTED RADIUS AND ULNA ORIF Left VASECTOMY Social History Socioeconomic History Marital status: Spouse name: Not on file Number of children: Not on file Years of education: Not on file Highest education level: Not on file Occupational History Not on file Social Needs Financial resource strain: Not on file Food insecurity: Worry: Not on file Inability: Not on file Transportation needs: Medical: Not on file Non-medical: Not on file Tobacco Use Smoking status: Never Smoker Smokeless tobacco: Never Used Substance and Sexual Activity Alcohol use: No Alcohol/week: 0.0 oz Drug use: No Sexual activity: Not on file Lifestyle Physical activity: Days per week: Not on file Minutes per session: Not on file Stress: Not on file Relationships Social connections: Talks on phone: Not on file Gets together: Not on file Attends mosque service: Not on file Active member of club or organization: Not on file Attends meetings of clubs or organizations: Not on file Relationship status: Not on file Intimate partner violence: Fear of current or ex partner: Not on file Emotionally abused: Not on file Physically abused: Not on file Forced sexual activity: Not on file Other Topics Concern Not on file Social History Narrative Lives at home with daughter and grandson Family History Problem Relation Age of Onset Diabetes Brother Hypertension Brother Diabetes Mother Musculoskeletal Mother MS Other - see comments Maternal Grandmother cirrhosis liver No Significant Medical Problems Father Review of Systems Vital Signs BP 120/70 | Temp 36.7 C (98 F) (Temporal Artery) | Wt 214 lb (97.1 kg) | BMI 33.52 kg/m Physical Exam Constitutional: He is oriented to person, place, and time. He appears well- developed and well-nourished. HENT: Head: Normocephalic and atraumatic. Right Ear: External ear normal. Left Ear: External ear normal. Eyes: Pupils are equal, round, and reactive to light. EOM are normal. Cardiovascular: Normal rate and regular rhythm. Pulmonary/Chest: Effort normal and breath sounds normal. Abdominal: Soft. Musculoskeletal: Normal range of motion. Neurological: He is alert and oriented to person, place, and time. Skin: Skin is warm. Vitals reviewed. Assessment/Plan Bronchitis, zpack DMII, metformin refill This visit did not involve counseling and coordination that comprised more than 50% of the visit time.Electronically signed by Camilo Belcher MD at 2018 1:33 PM CDTdocumented in this encounter Plan of Treatment Health Maintenance Due Date Last Done Comments HEPATITIS C (HCV) SCREEN 1955 EYE EXAM 1965 URINE MICROALBUMIN 1964 FOOT EXAM 1972 DTaP,Tdap,and Td Vaccines (1 - Tdap) 1973 COLONOSCOPY 2004 Zoster Recombinant Vaccine (SHINGRIX) (1 2004 of 2) HgA1C 11/25/2018 05/25/2018, 02/24/2018 LDL-C 02/16/2019 02/16/2018 Medicare Wellness Visit 2019 PNEUMOCOCCAL VACCINES 65+ (1 of 2 - PCV13) 2019 CREATININE (SERUM) 05/25/2019 05/25/2018, 02/16/2018 INFLUENZA VACCINE (#1) 2019 documented as of this encounter Results Not on filedocumented in this encounter Visit Diagnoses Diagnosis Bronchitis - Primary Bronchitis, not specified as acute or chronic Type 2 diabetes mellitus without complication, without long-term current use of insulin documented in this encounter documented as of this encounter"
--- OUTSIDE RECORDS SUMMARY | 2019-10-08 08:52 | XMS REPORT | Summary of Care ---
:1955 Author Organization [facility] - [facility] Address [address] [place] [address] Care Team Providers Name Role Phone Camilo Belcher MD Primary Care Provider Reason for Visit Reason Comments Congestion Cough Sore Throat Encounter Details Date Type Department Care Team Description 05/25/2019 Office Visit [facility] Family Camilo Belcher MD Bronchitis (Primary Dx); Medicine - [address] Type 2 diabetes mellitus without complication, without long- term current use of insulin [address] 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
--- OUTSIDE RECORDS SUMMARY | 2019-10-08 08:52 | XMS REPORT | Summary of Care ---
:1955 Author Organization [facility] - [facility] Address [address] [place] [address] Care Team Providers Name Role Phone Camilo Belcher MD Primary Care Provider Encounter Details Date Type Department Care Team Description 05/25/2019 Orders Only [facility] Doctor Unassigned, No [address] [facility] [place] [address] [address] [place] [address] Allergies Active Allergy Reactions Severity Noted Date Comments Iodine Dizziness 05/21/2016 Penicillins Unknown - See comments 10/29/2015 documented as of this encounter (statuses as of 05/25/2019) Medications Medication Sig Dispensed Refills Start Date End Date Status aspirin 81 mg chewable Take 81 mg by 0 Active tablet mouth daily. CIALIS 20 mg tablet TAKE DIRECTED 20 tablet 0 12/17/2016 Active metFORMIN 500 mg Take 1 tablet by 180 tablet 1 05/25/2018 Active tablet mouth 2 (two) times daily with meals. azithromycin 250 mg Take 1 tablet by 1 Package 0 12/12/2018 Active tabletIndications: mouth Pharyngitis, SEE-INSTRUCTIONS. unspecified etiology Take 500 mg day 1, then 250 mg days 2 to 5. documented as of this encounter (statuses as of 05/25/2019) Active Problems Not on filedocumented as of this encounter (statuses as of [...] of this encounter Last Filed Vital Signs Not on filedocumented in this encounter Plan of Treatment Date Type Specialty Care Team Description 05/25/2019 Office Visit Family Medicine Camilo Belcher MD [address] [place] [phone] Health Maintenance Due Date Last Done Comments [...] (#1) 2019 documented as of this encounter Procedures Procedure Name Priority Date/Time Associated Diagnosis Comments ASSIGNMENT OF BENEFITS Routine 05/25/2019 1:10 PM CDT documented in this encounter Results Not on filedocumented in this encounter Insurance Payer Benefit Plan / Group Subscriber ID Effective Dates Phone Address Type AETNA AETNA INDEMNITY [id number] 2019-Present Indemnity documented as of this encounter
--- OUTSIDE RECORDS SUMMARY | 2019-10-08 08:52 | XMS REPORT | Summary of Care ---
:1955 Author Organization [facility] - [facility] Address [address] [place] [id number] Care Team Providers Name Role Phone Camilo Belcher MD Primary Care Provider Reason for Visit Reason Comments Congestion Cough Sore Throat Encounter Details Date Type Department Care Team Description 05/25/2019 Office Visit [facility] Family Camilo Belcher MD Bronchitis (Primary Dx); Medicine - [address] Type 2 diabetes mellitus without complication, without long- term current use of insulin [address] 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
--- NOTE | 2019-10-08 09:21 | ER ---
Nurse's Notes [facility] Name: Gil Champagne Age: 64 yrs Sex: Male : 1955 Arrival Date: 10/08/2019 Time: 08:53 Bed 18 Private MD: Camilo Belcher S Diagnosis: Tavares's palsy;Type 2 diabetes mellitus Presentation: 10/08 08:58 Presenting complaint: Patient states: L sided facial droop and L ear pain x 2 days. ss Transition of care: patient was not received from another setting of care. Onset of symptoms was October 06, 2019. Risk Assessment: Do you want to hurt yourself or someone else? Patient reports no desire to harm self or others. Initial Sepsis Screen: Does the patient meet any 2 criteria? No. Patient's initial sepsis screen is negative. Does the patient have a suspected source of infection? No. Patient's initial sepsis screen is negative. Care prior to arrival: None. 08:58 Method Of Arrival: Ambulatory ss 08:58 Acuity: SHERRI 3 ss Historical: - Allergies: 09:00 PENICILLINS; ss 09:00 Iodine; ss - PMHx: 09:00 Diabetes - NIDDM; ss - PSHx: 09:00 left arm; left knee; right ankle; ss - Immunization history:: Adult Immunizations up to date. - Social history:: Smoking status: Patient/guardian denies using tobacco. - Ebola Screening: : Patient denies exposure to infectious person Patient denies travel to an Ebola-affected area in the 21 days before illness onset. - Family history:: not pertinent. Screenin:05 Abuse screen: Denies threats or abuse. Denies injuries from another. Nutritional ss screening: No deficits noted. Nutritional screening: No deficits noted. Tuberculosis screening: Never had TB. Fall Risk None identified. Assessment: 09:32 General: Appears in no apparent distress. comfortable, Behavior is calm, cooperative, em Denies fever. Pain: Complains of pain in right ear Pain currently is 8 out of 10 on a pain scale. Neuro: Level of Consciousness is awake, alert, obeys commands, Oriented to person, place, time, situation, Appropriate for age Electrode Turner And Finisher are equal bilaterally Moves all extremities. Gait is steady, Speech is normal, Facial droop on left, Intact Denies blurred vision. Cardiovascular: Capillary refill < 3 seconds Patient's skin is warm and dry. Respiratory: Airway is patent Respiratory effort is even, unlabored, Respiratory pattern is regular, symmetrical. GI: Patient currently denies nausea, vomiting. EENT: Oral mucosa is moist. Derm: Skin is intact, is healthy with good turgor, Skin is pink, warm \T\ dry. Musculoskeletal: Capillary refill < 3 seconds, Range of motion: intact in all extremities. Vital Signs: 09:00 BP 164 / 110; Pulse 90; Resp 15; Pulse Ox 98% on R/A; Weight 97.52 kg; Height 5 ft. 7 ss in. (170.18 cm); Pain 8/10; 09:05 Temp 98.7(O); ss 09:00 Body Mass Index 33.67 (97.52 kg, 170.18 cm) NIH Stroke Scale Scores: 09:23 NIHSS Score: 2 [facility] ED Course: 08:53 Patient arrived in ED. ag5 08:53 Camilo Belcher MD is Private Physician. ag5 08:59 Triage completed. ss 09:00 Arm band placed on left wrist. ss 09:01 Collin Meehan MD is Attending Physician. marilynn 09:05 Patient has correct armband on for positive identification. Bed in low position. Call light in reach. 09:06 Carlos Dao LVN is Primary Nurse. em 09:20 Camilo Belcher MD is Referral Physician. marilynn 09:23 Devin Chan MD is Referral Physician. marilynn 09:51 No provider procedures requiring assistance completed. Patient did not have IV access em during this emergency room visit. Administered Medications: 09:35 Drug: Valtrex 1000 mg Route: PO; em 09:41 Follow up: Response: Medication administered at discharge. em 09:35 Drug: predniSONE 60 mg Route: PO; em 09:41 Follow up: Response: Medication administered at discharge. em 09:41 Drug: Ibuprofen 600 mg Route: PO; em 09:41 Follow up: Response: Medication administered at discharge. em Outcome: 09:20 Discharge ordered by . marilynn 09:51 Discharged to home ambulatory. em 09:51 Condition: good 09:51 Discharge instructions given to patient, Instructed on discharge instructions, follow up and referral plans. medication usage, Demonstrated understanding of instructions, follow-up care, medications, Prescriptions given X 3. 09:53 Patient left the ED. NIH Stroke Scale - NIH Stroke Score Date: 10/08/2019 Time: 09:23 Total Score = 2 1a. Level of Consciousness (LOC) - 0(Alert) 1b. Level of Consciousness (LOC) (Year \T\ Age) - 0(Both) 1c. LOC Commands (Open \T\ Closes Eyes/Rack Room Worker) - 0(Both) 2. Best Gaze (Lateral Gaze Paresis) - 0(Normal) 3. Visual Field Loss - 0(No visual loss) 4. Facial Palsy - 2(Partial paralysis) 5a. Left Arm: Motor (10-second hold) - 0(No drift) 5b. Right Arm: Motor (10-second hold) - 0(No drift) 6a. Left Leg: Motor (5-second hold - always test supine) - 0(No drift) 6b. Right Leg: Motor (5-second hold - always test supine) - 0(No drift) 7. Limb Ataxia (finger/nose \T\ heel/wade - test with eyes open) - 0(Absent) 8. Sensory Loss (pinprick arms/legs/face) - 0(Normal) 9. Best Language: Aphasia (description/naming/reading) - 0(No aphasia) 10. Dysarthria (speech clarity - read or repeat words) - 0(Normal) 11. Extinction and Inattention (visual/tactile/auditory/spatial/personal) - 0(No abnormality) Initials: marilynn Signatures: Collin Meehan MD MD cha Munoz, Edgar, RURAL ROUTE MAIL CARRIER RURAL ROUTE MAIL CARRIER Yanet Blake, RN RN Yo Garrett ag5
--- NOTE | 2019-10-08 09:22 | EDPHYS ---
Physician Documentation [facility] Name: Gil Champagne Age: 64 yrs Sex: Male : 1955 Arrival Date: 10/08/2019 Time: 08:53 Bed 18 Private MD: Camilo Belcher S ED Physician Collin Meehan HPI: 10/08 09:16 This 64 yrs old Male presents to ER via Ambulatory with complaints of marilynn Numbness Of Face, Ear Pain, Neck Pain, >24Hrs Old. 09:16 The patient's problem is reported as a facial droop, on left. Onset: The marilynn symptoms/episode began/occurred 2 day(s) ago. Duration: The episode is continuous. Context: the episode(s) was witnessed, by family. The symptoms are alleviated by nothing. The symptoms are aggravated by nothing. Associated signs and symptoms: The patient has no apparent associated signs or symptoms. Severity of symptoms: At their worst the symptoms were mild moderate in the emergency department the symptoms are unchanged. Patient's baseline: Neuro: alert and fully oriented. The patient has not experienced similar symptoms in the past. Historical: - Allergies: 09:00 PENICILLINS; ss 09:00 Iodine; ss - PMHx: 09:00 Diabetes - NIDDM; ss - PSHx: 09:00 left arm; left knee; right ankle; ss - Immunization history:: Adult Immunizations up to date. - Social history:: Smoking status: Patient/guardian denies using tobacco. - Ebola Screening: : Patient denies exposure to infectious person Patient denies travel to an Ebola-affected area in the 21 days before illness onset. - Family history:: not pertinent. ROS: 09:16 Constitutional: Negative for fever, chills, and weight loss, Eyes: Negative for injury, marilynn pain, redness, and discharge, ENT: Negative for injury, pain, and discharge, Neck: Negative for injury, pain, and swelling, Cardiovascular: Negative for chest pain, palpitations, and edema, Respiratory: Negative for shortness of breath, cough, wheezing, and pleuritic chest pain, Abdomen/GI: Negative for abdominal pain, nausea, vomiting, diarrhea, and constipation, Back: Negative for injury and pain, : Negative for injury, bleeding, discharge, and swelling, MS/Extremity: Negative for injury and deformity, Skin: Negative for injury, rash, and discoloration, Psych: Negative for depression, anxiety, suicide ideation, homicidal ideation, and hallucinations, Allergy/Immunology: Negative for hives, rash, and allergies, Endocrine: Negative for neck swelling, polydipsia, polyuria, polyphagia, and marked weight changes, Hematologic/Lymphatic: Negative for swollen nodes, abnormal bleeding, and unusual bruising. 09:16 Neuro: Positive for weakness, of the forehead, left cheek, left eye and left jaw. Exam: 09:16 Constitutional: This is a well developed, well nourished patient who is awake, alert, marilynn and in no acute distress. Eyes: Pupils equal round and reactive to light, extra-ocular motions intact. Lids and lashes normal. Conjunctiva and sclera are non-icteric and not injected. Cornea within normal limits. Periorbital areas with no swelling, redness, or edema. ENT: Nares patent. No nasal discharge, no septal abnormalities noted. Tympanic membranes are normal and external auditory canals are clear. Oropharynx with no redness, swelling, or masses, exudates, or evidence of obstruction, uvula midline. Mucous membranes moist. Neck: Trachea midline, no thyromegaly or masses palpated, and no cervical lymphadenopathy. Supple, full range of motion without nuchal rigidity, or vertebral point tenderness. No Meningismus. Chest/axilla: Normal chest wall appearance and motion. Nontender with no deformity. No lesions are appreciated. Cardiovascular: Regular rate and rhythm with a normal S1 and S2. No gallops, murmurs, or rubs. Normal PMI, no JVD. No pulse deficits. Respiratory: Lungs have equal breath sounds bilaterally, clear to auscultation and percussion. No rales, rhonchi or wheezes noted. No increased work of breathing, no retractions or nasal flaring. Abdomen/GI: Soft, non-tender, with normal bowel sounds. No distension or tympany. No guarding or rebound. No evidence of tenderness throughout. Back: No spinal tenderness. No costovertebral tenderness. Full range of motion. Skin: Warm, dry with normal turgor. Normal color with no rashes, no lesions, and no evidence of cellulitis. MS/ Extremity: Pulses equal, no cyanosis. Neurovascular intact. Full, normal range of motion. Psych: Awake, alert, with orientation to person, place and time. Behavior, mood, and affect are within normal limits. 09:16 Head/face: Noted is left facial droop, forehead included. 09:19 CT study not indicated or reported. Reason for not performing CT: not needed, joseluis subramanian palsy 09:19 ENT: TM's: are normal, no acute changes, Examination of the other ear shows no obvious abnormality. Vital Signs: 09:00 BP 164 / 110; Pulse 90; Resp 15; Pulse Ox 98% on R/A; Weight 97.52 kg; Height 5 ft. 7 ss in. (170.18 cm); Pain 8/10; 09:05 Temp 98.7(O); ss 09:00 Body Mass Index 33.67 (97.52 kg, 170.18 cm) ss NIH Stroke Scale Scores: 09:23 NIHSS Score: 2 marilynn MDM: 09:02 Patient medically screened. [facility] 09:19 Data reviewed: vital signs, nurses notes. [facility] 10/08 09:02 Order name: Basic Metabolic Panel [facility] 10/08 09:02 Order name: CBC with Diff [facility] 10/08 09:02 Order name: LFT's [facility] Administered Medications: 09:35 Drug: Valtrex 1000 mg Route: PO; em 09:41 Follow up: Response: Medication administered at discharge. em 09:35 Drug: predniSONE 60 mg Route: PO; em 09:41 Follow up: Response: Medication administered at discharge. em 09:41 Drug: Ibuprofen 600 mg Route: PO; em 09:41 Follow up: Response: Medication administered at discharge. em Disposition: 10/08/19 09:20 Discharged to Home. Impression: Tavares's palsy, Type 2 diabetes mellitus. - Condition is Stable. - Discharge Instructions: Tavares Palsy, Adult, Type 2 Diabetes Mellitus, Diagnosis, Adult, Type 2 Diabetes Mellitus, Diagnosis, Adult, [id number]. - Prescriptions for Valtrex 1 g Oral Tablet - take 1 tablet by ORAL route every 8 hours for 7 days; 21 tablet. Prednisone 20 mg Oral Tablet - take 3 tablet by ORAL route once daily for 5 days; 15 tablet. Artificial Tears - instill 1 application by OPHTHALMIC route 8 times per day as needed; 10 milliliter. - Medication Reconciliation Form, Thank You Letter, Antibiotic Education, Prescription Opioid Use form. - Follow up: Camilo Belcher MD; When: 2 - 3 days; Reason: Recheck today's complaints, Continuance of care, Re-evaluation by your physician. Follow up: Devin Chan MD; When: 2 - 3 days; Reason: Recheck today's complaints, Re-evaluation by your physician. - Problem is new. - Symptoms have improved. NIH Stroke Scale - NIH Stroke Score Date: 10/08/2019 Time: 09:23 Total Score = 2 1a. Level of Consciousness (LOC) - 0(Alert) 1b. Level of Consciousness (LOC) (Year \T\ Age) - 0(Both) 1c. LOC Commands (Open \T\ Closes Eyes/Tax Associate) - 0(Both) 2. Best Gaze (Lateral Gaze Paresis) - 0(Normal) 3. Visual Field Loss - 0(No visual loss) 4. Facial Palsy - 2(Partial paralysis) 5a. Left Arm: Motor (10-second hold) - 0(No drift) 5b. Right Arm: Motor (10-second hold) - 0(No drift) 6a. Left Leg: Motor (5-second hold - always test supine) - 0(No drift) 6b. Right Leg: Motor (5-second hold - always test supine) - 0(No drift) 7. Limb Ataxia (finger/nose \T\ heel/wade - test with eyes open) - 0(Absent) 8. Sensory Loss (pinprick arms/legs/face) - 0(Normal) 9. Best Language: Aphasia (description/naming/reading) - 0(No aphasia) 10. Dysarthria (speech clarity - read or repeat words) - 0(Normal) 11. Extinction and Inattention (visual/tactile/auditory/spatial/personal) - 0(No abnormality) Initials: marilynn Signatures: Dispatcher [employer] EDCollin Hummel MD MD cha Munoz, Edgar, ORTHOTICS TECHNICIAN ORTHOTICS TECHNICIAN Yanet Abdul, RN RN ss Corrections: (The following items were deleted from the chart) 09: 09:03 Basic Metabolic Panel ordered. [facility] EDMS 09:03 CBC with Automated Diff ordered. [facility] EDMS 09:03 Liver (Hepatic) Function ordered. [facility] EDMS 09:03 MAGNESIUM+C.LAB.BRZ ordered. [facility] EDMS 09:17 09:03 PROBNP+C.LAB.BRZ ordered. [facility] EDMS 09:17 09:03 PROTIME (+INR)+COAG.LAB.BRZ ordered. [facility] EDMS 09:17 09:03 TROPONIN (EMERG DEPT USE ONLY)+C.LAB.BRZ ordered. [facility] EDMS 09:20 09:03 Chest Single View+RAD.RAD.BRZ ordered. [facility] 09:23 09:[address] [facility] : 09:02 EKG - Nurse/Tech ordered. [facility] em : 09:02 IV Saline Lock ordered. [facility] 09:02 Labs collected and sent ordered. [facility] 09:20 10/08/2019 09:20 Discharged to Home. Impression: Tavares's palsy; Type 2 marilynn diabetes mellitus. Condition is Stable. Forms are Medication Reconciliation Form, Thank You Letter, Antibiotic Education, Prescription Opioid Use. Follow up: Camilo Belcher; When: 2 - 3 days; Reason: Recheck today's complaints, Continuance of care, Re-evaluation by your physician. Problem is new. Symptoms have improved. [facility] 09:02 Oxygen Per Protocol ordered. [facility] 09:02 O2 Sat Monitoring ordered. [facility] 09:53 09:23 10/08/2019 09:20 Discharged to Home. Impression: Tavares's palsy; Type 2 em diabetes mellitus. Condition is Stable. Discharge Instructions: Tavares Palsy, Adult, Type 2 Diabetes Mellitus, Diagnosis, Adult, Type 2 Diabetes Mellitus, Diagnosis, Adult, [id number]. Prescriptions for Valtrex 1 g Oral Tablet - take 1 tablet by ORAL route every 8 hours for 7 days; 21 tablet, Prednisone 20 mg Oral Tablet - take 3 tablet by ORAL route once daily for 5 days; 15 tablet, Artificial Tears - instill 1 application by OPHTHALMIC route 8 times per day as needed; 10 milliliter. and Forms are Medication Reconciliation Form, Thank You Letter, Antibiotic Education, Prescription Opioid Use. Follow up: Camilo Belcher; When: 2 - 3 days; Reason: Recheck today's complaints, Continuance of care, Re-evaluation by your physician. Follow up: Devin Chan; When: 2 - 3 days; Reason: Recheck today's complaints, Re-evaluation by your physician. Problem is new. Symptoms have improved. marilynn
[2019-10-08] MEDS ORDERED: VALACYCLOVIR 500 MG TAB ONE (09:32)
[2019-10-08] MEDS ORDERED: predniSONE 20 MG TAB ONE (09:33)
[2019-10-08] MEDS ORDERED: IBUPROFEN 200 MG TAB PO ONE (09:40)
[2019-10-08] MEDS ORDERED: IBUPROFEN 400 MG TAB ONE (09:40)
[2019-10-08 09:58] VITALS: BP 164/110; O2SAT 98
[2019-10-08 09:59] VITALS: TEMP 98.7
== END 2019-10-08 09:53 | disposition home or self-care (01) ==
LOC: ER 08:49
DX: G51.0 Bell's palsy (principal); E11.9 Type 2 diabetes mellitus without complications; Z88.0 Allergy status to penicillin; Z91.048 Other nonmedicinal substance allergy status
CPT/HCPCS: 99283; J7512